=== PATIENT | male | born 1990 | race Caucasian/White ===

== ENCOUNTER → 2016-11-10 | Outpatient (CLI) | payer BC ==
[~2016-11-10] MED LIST: TRAM-10 PO
--- NOTE | 2016-11-10 13:41 | DIAGNOSTIC IMAGING REPORT ---
KUB HISTORY: 26-year-old male presents with acute abdominal pain, nausea, vomiting and diarrhea for approximately 4 days. COMPARISON: Thoracic spine radiographs 01/13/2016. TECHNIQUE: KUB radiograph. FINDINGS: There is moderate to extensive volume of formed colonic stool within the right hemicolon and transverse colon. No pneumoperitoneum is seen on this supine projection. The bowel gas pattern is nonobstructive. Kidneys are secured by bowel gas and fecal debris, however no urolith identified. Likely phleboliths are seen within the pelvis. No fracture. Lung bases are clear. IMPRESSION: 1. Nonobstructive bowel gas pattern. 2. Moderate to extensive volume of formed colonic stool within the right hemicolon and transverse colon may reflect constipation within the appropriate clinical setting. Electronically signed by: Adriel Zavala 11/10/2016 1:40 PM Dictated Date/Time: 11/10/2016 1:37 PM
[2016-11-10 14:37] LABS: BASO % 0.3 %; BASO ABS # 0.02 K/uL (0-0.2); COMPLETE YES; HEMATOCRIT 46.4 % (42-52); LYMPH % 25.2 %; MEAN CELL VOLUME 87.1 fL (80-100); MEAN CORPUSCULAR HEMOGLOBIN 29.8 pg (25-34); MEAN CORPUSCULAR HGB CONC 34.3 g/dl (32-36); MEAN PLATELET VOLUME 9.2 fL (7.4-10.4); MONO % 9.2 %; NEUT % 61.3 %; PLATELET COUNT 271 K/uL (130-400); RED BLOOD COUNT 5.33 M/uL (4.7-6.1); WHITE BLOOD COUNT 5.96 K/uL (4.8-10.8)
[2016-11-10 15:06] LABS: ALT/SGPT 28 U/L (12-78); BLOOD UREA NITROGEN 6 mg/dl (7-18); BUN/CREATININE RATIO 6.1 (10-20); CALCIUM 9.1 mg/dl (8.5-10.1); CARBON DIOXIDE 32 mmol/L (21-32); CHLORIDE 107 mmol/L (98-107); CREATININE 0.92 mg/dl (0.60-1.40); GLUCOSE 87 mg/dl (70-99); POTASSIUM 4.1 mmol/L (3.5-5.1); SODIUM 143 mmol/L (136-145)
[2016-11-10 15:09] LABS: ALB/GLOB RATIO 1.1 (0.9-2); ALKALINE PHOSPHATASE 51 U/L (45-117); AST/SGOT 12 U/L (15-37)
[2016-11-10 15:38] LABS: LYME DISEASE AB IGM NEG (NEG)
[2016-11-10 15:41] LABS: LYME DISEASE AB IGG NEG (NEG)
== END | disposition home or self-care (01) ==
LOC: C.LAB 13:04
PROVIDERS: ATTEND Family Medicine
DX: R10.84 Generalized abdominal pain (principal)